=== PATIENT | male | born 1985 | race Caucasian/White ===

== ENCOUNTER 2017-10-09 12:16 | Inpatient (IN) ==
[2017-10-09] MEDS ORDERED: HYDROmorphone 2 MG/1 ML VIAL ONE ×3 (12:22→19:20)
[2017-10-09] MEDS ORDERED: ONDANSETRON 4 MG/2 ML VIAL ONE (12:22)
[2017-10-09] MEDS ORDERED: PROPOFOL 200 MG/20 ML VIAL IV ONE ×2 (12:25→19:20)
[2017-10-09] MEDS ORDERED: ceFAZolin 1,000 MG VIAL ONE (12:39)
[2017-10-09] MEDS ORDERED: HYDROmorphone 2 MG/1 ML VIAL IV STA ×2 (13:15→13:36)
[2017-10-09] MEDS ORDERED: PROPOFOL 200 MG/20 ML VIAL IV STA (13:15)
[2017-10-09] MEDS ORDERED: ONDANSETRON 4 MG/2 ML VIAL IV STA (13:15)
[2017-10-09] MEDS: LACTATED RINGERS 1,000 ML IV SCH (13:40)
[2017-10-09] MEDS ORDERED: PROMETHAZINE 25 MG/1 ML VIAL IM PRN (16:24)
[2017-10-09] MEDS ORDERED: MORPHINE 2 MG/1 ML SYRINGE IV PRN (16:24)
[2017-10-09] MEDS ORDERED: MAGNESIUM HYDROXIDE SUSP 30 ML UDCUP PO PRN (16:24)
[2017-10-09] MEDS ORDERED: MEPERIDINE 25 MG/1 ML VIAL ONE (16:35)
[2017-10-09] MEDS ORDERED: MEPERIDINE 25 MG/1 ML VIAL IV PRN (16:45)
[2017-10-09] MEDS ORDERED: HYDROmorphone 2 MG/1 ML VIAL IV PRN ×2 (16:45→23:21)
[2017-10-09] MEDS ORDERED: ONDANSETRON 4 MG/2 ML VIAL IV PRN (16:45)
[2017-10-09] MEDS: KETOROLAC 15 MG/1 ML VIAL IV PRN (18:27)
[2017-10-09] MEDS ORDERED: fentaNYL 100 MCG/2 ML VIAL ONE (19:20)
[2017-10-09] MEDS ORDERED: SEVOFLURANE 1 UNIT/15 MINUTE INH ONE (19:20)
[2017-10-09] MEDS ORDERED: ACETAMINOPHEN 1,000 MG/100 ML VIAL IV ONE (19:21)
[2017-10-09] MEDS ORDERED: MIDAZOLAM 2 MG/2 ML VIAL ONE (19:21)
[2017-10-09] MEDS ORDERED: LACTATED RINGERS 1,000 ML IV ONE (19:21)
[2017-10-09] MEDS: ceFAZolin 1,000 MG in SYRINGE 1 EACH IV SCH (22:05)
[2017-10-09] MEDS: HYDROmorphone 2 MG/1 ML VIAL IV PRN (23:31)
[2017-10-09] MEDS: HYDROmorphone PCA 30 MG/30 ML SYRINGE IV SCH (23:57)
[2017-10-10] MEDS: KETOROLAC 15 MG/1 ML VIAL IV PRN ×2 (00:30→07:30)
[2017-10-10] MEDS: ceFAZolin 1,000 MG in SYRINGE 1 EACH IV SCH ×4 (06:42→21:37)
[2017-10-10] MEDS: ONDANSETRON 4 MG/2 ML VIAL IV PRN ×2 (10:07→18:20)
[2017-10-10] MEDS: LACTATED RINGERS 1,000 ML IV SCH ×2 (14:17→22:10)
[2017-10-11] MEDS: HYDROmorphone PCA 30 MG/30 ML SYRINGE IV SCH (00:12)
[2017-10-11] MEDS: ceFAZolin 1,000 MG in SYRINGE 1 EACH IV SCH ×3 (05:20→22:08)
[2017-10-11] MEDS: HYDROmorphone 2 MG/1 ML VIAL IV PRN ×3 (13:54→22:08)
[2017-10-11] MEDS: ONDANSETRON 4 MG/2 ML VIAL IV PRN (13:57)
[2017-10-11] MEDS ORDERED: ZALEPLON 5 MG CAPSULE PO PRN (16:13)
[2017-10-11] MEDS: KETOROLAC 30 MG/1 ML VIAL IV SCH ×2 (16:54→22:07)
[2017-10-11] MEDS ORDERED: ACETAMINOPHEN 325 MG TABLET PO PRN (18:52)
[2017-10-11] MEDS: oxyCODONE IR 5 MG TABLET PO PRN (20:47)
[2017-10-12] MEDS: oxyCODONE IR 5 MG TABLET PO PRN ×6 (00:47→21:21)
[2017-10-12] MEDS: HYDROmorphone 2 MG/1 ML VIAL IV PRN ×3 (03:07→10:55)
[2017-10-12] MEDS: KETOROLAC 30 MG/1 ML VIAL IV SCH ×4 (04:17→21:23)
[2017-10-12] MEDS: ceFAZolin 1,000 MG in SYRINGE 1 EACH IV SCH ×3 (06:56→21:23)
[2017-10-12] MEDS ORDERED: diphenhydrAMINE CAP 25 MG CAPSULE PO PRN (08:13)
[2017-10-12] MEDS: diphenhydrAMINE CAP 50 MG CAPSULE PO PRN ×2 (08:53→22:16)
[2017-10-12] MEDS: FAMOTIDINE 20 MG TABLET PO SCH ×3 (08:53→21:22)
[2017-10-13] MEDS: oxyCODONE IR 5 MG TABLET PO PRN ×3 (01:30→10:18)
[2017-10-13] MEDS: ceFAZolin 1,000 MG in SYRINGE 1 EACH IV SCH (05:12)
[2017-10-13] MEDS: KETOROLAC 30 MG/1 ML VIAL IV SCH ×2 (05:12→09:04)
[2017-10-13] MEDS: FAMOTIDINE 20 MG TABLET PO SCH (09:00)
[2017-10-13 11:23] VITALS: BP 144/76
== END 2017-10-13 14:05 | disposition home or self-care (01) | DRG 505 ==
LOC: N.ED 12:16 → N.3E 14:15 → N.EDINP 16:24 → N.3E 17:27
PROVIDERS: ADMIT Orthopaedic Surgery; ATTEND Orthopaedic Surgery